=== PATIENT | male | born 1945 | race Caucasian/White ===

== ENCOUNTER 2023-08-29 04:25 | Inpatient (IN) ==
--- NOTE | 2023-08-29 04:45 | Emergency Department Note ---
History of Present Illness General Chief complaint: Skin Problem Stated complaint: PAINFUL BOILS UNDER ARMS Time Seen by Provider: 08/29/23 04:34 Source: patient, RN notes reviewed and old records reviewed (I have reviewed his ER visit for the similar complaint on 08-25-2023) Mode of arrival: ambulatory Limitations: no limitations History of Present Illness Maximum Pain Intensity: 5 This patient is a 77-year-old male comes in with a rash on his chest bilaterally with blisters has been going on for the last week and a half he was seen here on the and received IV's Solu-Medrol his labs look reassuring antibiotics and steroids were called and he does have an appointment to see dermatology later this week. He says that the rash is gotten worse. He says he supposed to be on the antibiotics and steroids but [facility] since the [facility] doctor [facility] not a [facility]. He denies fever no chest pain or shortness of breath he said the rashes got more red and swollen and more blisters. No cough. When he was seen in the ER it was felt that he had cellulitis with also bullous pemphigoid Home Medications Medication Instructions Recorded Confirmed Type pantoprazole 40 mg tablet,delayed 40 mg PO QAM 12/12/18 08/25/23 History release apixaban 5 mg tablet 5 mg PO BID 11/24/19 08/25/23 History atorvastatin 20 mg tablet 10 mg PO QPM 11/24/19 08/25/23 History montelukast 10 mg tablet 10 mg PO PM 05/09/23 08/25/23 History cefadroxil 500 mg capsule 500 mg PO BID PRN Prevent 05/29/23 08/25/23 Rx infection 7 days #14 caps acetaminophen 500 mg tablet 1,000 mg PO DIRECTED PRN Pain 08/25/23 08/25/23 History (Tylenol Extra Strength) carboxymethylcellulose sodium 0.5 1 drp ophthalmic (eye) DIRECTED 08/25/23 08/25/23 History % eye drops (Refresh Tears) PRN Dry Eyes ciclopirox 8 % topical solution 1 applic topical DIRECTED 08/25/23 08/25/23 History doxycycline hyclate 100 mg tablet 100 mg PO BID 10 days #20 tabs 08/25/23 Rx furosemide 20 mg tablet (Lasix) 20 mg PO DAILY 08/25/23 08/25/23 History metoprolol succinate 50 mg 50 mg PO DAILY 08/25/23 08/25/23 History tablet,extended release 24 hr potassium chloride 20 mEq 20 meq PO DAILY 08/25/23 08/25/23 History tablet,extended release prednisone 20 mg tablet 20 mg PO BID 5 days #10 tabs 08/25/23 Rx Allergies Allergy/AdvReac Type Severity Reaction Status Date / Time meloxicam AdvReac Intermediate Diarrhea Verified 08/25/23 19:16 Past Med/Surg History Problem List (Updated 08/29/23 @ 05:47 by Jim Valero MD) Rash (Acute) Cellulitis (Acute) Bullous pemphigoid (Acute) Encounter for pre-operative examination Degenerative arthritis of knee, bilateral Medical History CKD (chronic kidney disease) Stage III Obesity Atrial fibrillation Follows with Dr. 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 Beliefs That Will Affect Care: None Current Living Situation: Alone Feels Safe at Home: Yes Assistive Devices: Cane, Glasses and Hearing Aid - Bilateral Review of Systems A total of 10 systems reviewed and were otherwise negative Physical Exam Vital Signs Vital Signs - 24 hr 08/29/23 04:26 08/29/23 04:40 Temperature 36.1 C L Temperature Source Oral Pulse Rate 93 H Respiratory Rate 20 Blood Pressure 132/76 Blood Pressure Mean 94 Pulse Oximetry 96 95 Oxygen Delivery Method Room Air Room Air Sepsis Recent Fever Within 48 Hours No Sepsis New/Unexplained Change in Mental Status No Sepsis Action Taken by Nursing No Action Required General: Well developed well nourished older male who is [id number] and in no acute distress, breathing comfortably on room air. Normal speech HEENT: Normal cephalic atraumatic. Pupils are equal round and reactive to light. Sclera anicteric. Extraocular movements are intact. Oropharynx is pink with moist mucous membranes. No swelling of the mouth lips or tongue. Neck: Supple with a midline trachea. No meningeal signs or stiffness, no JVD or bruits. No Stridor. Chest: Clear to auscultation bilaterally. No wheezes or rhonchi. No increased work of breathing. Heart: Regular rate and rhythm without murmurs or gallops. Abdomen: Soft nontender, nondistended without rebound guarding or rigidity. Extremities: No cyanosis clubbing or edema. No calf tenderness or assymetry Spine/Back. Non tender to palpation. No CVA tenderness Skin: Good turgor. He has some redness bilaterally in his chest/breast more on the right he has multiple clear large blisters some of which have opened and are scabbed over. The area is warm. No crepitus Neurologic exam: Cranial nerves two through 12 are intact. Motor and sensation are intact and symmetrical throughout. Course Administered Medications Discontinued Medications Ceftriaxone Sodium (Rocephin) 2,000 mg in 50 mls @ 100 mls/hr IV NOW STA Stop: 08/29/23 05:08 Last Admin: 08/29/23 05:24 Dose: 100 mls/hr Documented By: KG Ketorolac Tromethamine (Ketorolac Tromethamine 15 Mg/Ml Vial) 10 mg IV NOW ONE Stop: 08/29/23 05:21 Last Admin: 08/29/23 05:24 Dose: 10 mg Documented By: KG Medical Decision Making Differential Diagnosis Cellulitis, sepsis, bullous pemphigoid, pemphigoid vulgaris, medication side effect Medical Records Attestation: I reviewed the patient's medical records. Home Medications Current Medication List: was personally reviewed by me Laboratory Data Attestation: I reviewed the patient's lab results. 08/29/23 04:45 08/29/23 04:45 Lab Results 08/29/23 Range/Units 04:45 WBC 10.93 H (4.8-10.8) K/ul RBC 5.63 (4.70-6.10) M/uL Hgb 17.3 (14.0-18.0) g/dl Hct 50.9 (42.0-52.0) % MCV 90.4 (80.0-100.0) fL MCH 30.7 (25.0-34.0) pg MCHC 34.0 (32.0-36.0) g/dL RDW Std Deviation 49.0 H (36.4-46.3) fL RDW Coeff of Naty 15.2 H (11.5-14.5) % Plt Count 316 (130-400) K/uL MPV 10.5 (9.4-12.4) fL Immature Gran % (Auto) 0.4 % Neut % (Auto) 62.7 % Lymph % (Auto) 19.3 % [place] % (Auto) 12.7 % Eos % (Auto) 4.3 % Baso % (Auto) 0.6 % Neut # (Auto) 6.85 H (1.40-6.50) K/uL Lymph # (Auto) 2.11 (1.20-3.40) K/uL [place] # (Auto) 1.39 H (0.11-0.59) K/uL Eos # (Auto) 0.47 (0.00-0.50) K/uL Baso # (Auto) 0.07 (0.00-0.20) K/uL Immature Gran # (Auto) 0.04 (0.01-0.20) K/uL Sodium 137 (136-145) mmol/L Potassium 3.9 (3.5-5.1) mmol/L Chloride 104 (98-107) mmol/L Carbon Dioxide 26 (21-32) mmol/L Anion Gap 7 (3-11) BUN 18 (6-23) mg/dl Creatinine 0.96 (0.6-1.4) mg/dl Est Cr Clr Drug Dosing Not Reportable Est GFR ( Amer) 88.0 ml/min Est GFR (Non-Af Amer) 75.9 ml/min BUN/Creatinine Ratio 18.8 (10-20) Glucose 102 H (70-99(Fasting)) mg/dl Lactate 1.2 (0.4-2.0) mmol/L Calcium 9.3 (8.6-10.3) mg/dl Magnesium 2.0 (1.7-2.4) mg/dl Total Bilirubin 1.6 H (0.2-1.0) mg/dl Direct Bilirubin 0.4 H (0-0.2) mg/dl AST 25 (13-39) U/L ALT 33 (7-52) U/L Alkaline Phosphatase 137 H (34-104) U/L Troponin I High Sens 9.0 (0-20) pg/ml Total Protein 7.2 (6.0-8.3) gm/dl Albumin 3.9 (3.4-5.0) gm/dl Procalcitonin 0.04 (0-0.5) ng/ml Imaging Data Attestation: I personally reviewed and interpreted this imaging study as follows: My Impression: Chest x-rayno acute infiltrate, failure, pneumothorax seen. MDM Narrative This patient comes in as described above. He was placed on a nuclear station operator room A10. He is here for treatment and evalation of a rash. It is red he does have blisters they have scabbed over in places as well. He is afebrile. IV access was established and blood work was obtained including blood cultures and lactic acid and given Rocephin 2 g IV he had this before. Unfortunately he was unable to get his antibiotics and steroids since he left [facility]. His white count was elevated at 10 although his lactic acid is not. Chest x-ray was clear. He was having a lot of of the pain he tells me so I gave him Toradol 10 mg IV. He is noticing of electrolyte abnormalities. Given his worsening of his rash and it looks infected with a cellulitis I do think he should be admitted/observed for IV antibiotics. I will discuss the case in consultation with Dr. Spear, the [facility] hospitalist. Impression & Plan Cellulitis, Rash Discharge Plan Visit Data Chief Complaint: Skin Problem Stated Complaint: PAINFUL BOILS UNDER ARMS ED Provider: Jim Valero Discharge Problem: Cellulitis, Rash Forms Stand Alone Forms: My [facility] Prescriptions Prescriptions: No Action cefadroxil 500 mg capsule 500 mg PO BID PRN (Reason: Prevent infection) 7 Days Qty: 14 0RF Rx Instructions: UNABLE TO VERIFY THIS MED. Take 1 cap twice a day to prevent infection pantoprazole 40 mg Tablet,Delayed Release (Dr/Ec) 40 mg PO QAM atorvastatin 20 mg Tablet 10 mg PO QPM apixaban 5 mg Tablet 5 mg PO BID montelukast 10 mg Tablet 10 mg PO PM metoprolol succinate 50 mg Tablet Extended Release 24 Hr 50 mg PO DAILY acetaminophen [Tylenol Extra Strength] 500 mg tablet 1,000 mg PO DIRECTED PRN (Reason: Pain) ciclopirox 8 % Solution 1 applic TOPICAL DIRECTED carboxymethylcellulose sodium [Refresh Tears] 0.5 % Drops 1 drp OPHTHALMIC (EYE) DIRECTED PRN (Reason: Dry Eyes) furosemide [Lasix] 20 mg Tablet 20 mg PO DAILY potassium chloride 20 mEq Tablet Extended Release 20 meq PO DAILY doxycycline hyclate 100 mg tablet 100 mg PO BID 10 Days Qty: 20 0RF prednisone 20 mg tablet 20 mg PO BID 5 Days Qty: 10 0RF Referrals Referrals: Maggi Vora DO [Primary Care Provider] - Discharge Problem: Cellulitis Qualifiers: Site of cellulitis: unspecified site Qualified Code(s): L03.90 - Cellulitis, unspecified
[2023-08-29 05:22] LABS: Basophils # (auto) 0.07 K/uL (0.00-0.20); Basophils % (auto) 0.6 %; Eosinophils # (auto) 0.47 K/uL (0.00-0.50); Eosinophils % (auto) 4.3 %; Hematocrit (blood only) 50.9 % (42.0-52.0); Hemoglobin 17.3 g/dl (14.0-18.0); Immature Granulocytes # (auto) 0.04 K/uL (0.01-0.20); Immature Granulocytes % (auto) 0.4 %; Lymphocytes # (auto) 2.11 K/uL (1.20-3.40); Lymphocytes % (auto) 19.3 %; Mean Corpuscular Hemoglobin 30.7 pg (25.0-34.0); Mean Corpuscular Volume 90.4 fL (80.0-100.0); Mean Platelet Volume 10.5 fL (9.4-12.4); Monocytes # (auto) 1.39 K/uL (0.11-0.59); Monocytes % (auto) 12.7 %; Neutrophils # (auto) 6.85 K/uL (1.40-6.50); Neutrophils % (auto) 62.7 %; Platelet Count 316 K/uL (130-400); RDW Coefficient of Variation 15.2 % (11.5-14.5); Red Blood Count 5.63 M/uL (4.70-6.10); White Blood Count 10.93 K/ul (4.8-10.8)
[2023-08-29] MEDS: cefTRIAXone SODIUM 2,000 MG/50 ML BAG IV STA (05:24)
[2023-08-29] MEDS: KETOROLAC TROMETHAMINE 15 MG/ML VIAL IV ONE (05:24)
[2023-08-29 05:26] LABS: Alanine Aminotransferase 33 U/L (7-52); Albumin Level 3.9 gm/dl (3.4-5.0); Alkaline Phosphatase 137 U/L (34-104); Anion Gap 7 (3-11); Aspartate Aminotransferase 25 U/L (13-39); BUN Creatinine Ratio 18.8 (10-20); Bilirubin Direct 0.4 mg/dl (0-0.2); Bilirubin,Total 1.6 mg/dl (0.2-1.0); Blood Urea Nitrogen 18 mg/dl (6-23); Calcium 9.3 mg/dl (8.6-10.3); Carbon Dioxide 26 mmol/L (21-32); Chloride 104 mmol/L (98-107); Est GFR (Non-African American) 75.9 ml/min; Glucose 102 mg/dl (70-99(Fasting)); Potassium 3.9 mmol/L (3.5-5.1); Sodium 137 mmol/L (136-145); Total Protein 7.2 gm/dl (6.0-8.3)
--- NOTE | 2023-08-29 06:13 | History & Physical Report ---
Date of Service August 29, 2023 Assessment & Plan (1) Cellulitis: Plan: Right chest wall cellulitis secondary to bullous dermatitis. 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 [place] if inpatient evaluation by specialist at [facility] not feasible.) DVT prophylaxis. Eliquis Full code Text document was generated using [employer] voice recognition software. It may contain grammatical or spelling errors. Kindly contact undersigned for clarification of any documentation item in question. History of Present Illness Chief Complaint: Worsening swelling chest, boils Primary Care Provider: Maggi Vora, History obtained from patient, family, and records. Medical history significant for chronic diastolic heart failure (EF 55 to 59%, TTE 2023), A-fib on Eliquis, valvular heart disease (severe TR, mild MR/AR), pulmonary hypertension, hypertension, hyperlipidemia, skin cancer status post surgery, past tobacco abuse. Last confinement February 2011 for GI bleed. 3 weeks ago, patient noted itchy and painful rash on his upper body, arms and left leg. Rash would form boils which would later rupture. Patient seen at PCPs office 2 weeks ago. Prescribed doxycycline for possible bacterial infection secondary to rash. Some improvement in rash and swelling. Outpatient provider showed photographs of rash to Dermatology service as per note. Outpatient dermatology scheduled this week. Patient consulted ER 4 days ago for evaluation of blistering rash. Patient discharged on prednisone and doxycycline course which patient was not able to procure because [facility]. Worsening rash and discomfort over the last few days. No fever, no chills, no chest pain, no SOB. Patient returned to ER for evaluation. IV ceftriaxone administered at the ER. Medical History as above Surgical History : Orbital fracture surgery, skin cancer surgery Family History : Colon cancer, DM Personal/Social history : Past tobacco abuse, occasional EtOH intake, retired [employer] teacher Allergies Allergy/AdvReac Type Severity Reaction Status Date / Time meloxicam AdvReac Intermediate Diarrhea Verified 08/25/23 19:16 Home Medications Medication Instructions Recorded Confirmed Type pantoprazole 40 mg tablet,delayed 40 mg PO QAM 12/12/18 08/29/23 History release apixaban 5 mg tablet 5 mg PO BID 11/24/19 08/29/23 History atorvastatin 20 mg tablet 10 mg PO QPM 11/24/19 08/29/23 History montelukast 10 mg tablet 10 mg PO PM 05/09/23 08/29/23 History acetaminophen 500 mg tablet 1,000 mg PO DIRECTED PRN Pain 08/25/23 08/29/23 History (Tylenol Extra Strength) carboxymethylcellulose sodium 0.5 1 drp ophthalmic (eye) DIRECTED 08/25/23 08/29/23 History % eye drops (Refresh Tears) PRN Dry Eyes furosemide 20 mg tablet (Lasix) 20 mg PO DAILY 08/25/23 08/29/23 History metoprolol succinate 50 mg 50 mg PO DAILY 08/25/23 08/29/23 History tablet,extended release 24 hr potassium chloride 20 mEq 10 meq PO DAILY 08/25/23 08/29/23 History tablet,extended release diclofenac sodium 1 % topical gel topical 08/29/23 History Past Med/Surg History Problem List (Updated 08/29/23 @ 05:47 by Jim Valero MD) Rash (Acute) Cellulitis (Acute) Bullous pemphigoid (Acute) Encounter for pre-operative examination Degenerative arthritis of knee, bilateral Medical History CKD (chronic kidney disease) Stage III Obesity Atrial fibrillation Follows with Dr. Vora Taking Eliquis GERD (gastroesophageal reflux disease) controlled Skin cancer BCC (face, back) Surgical History History of basal cell carcinoma (BCC) excision History of cardioversion x2 History of facial surgery R/t fracture History of esophagogastroduodenoscopy (EGD) Hx of colonoscopy Family History Mother Family history of diabetes mellitus Grandmother (Maternal) FHx: colon cancer Social History Smoking Status: Former smoker Second Hand Exposure: No; Do You Dip or Chew Tobacco: No; Hx Alcohol Use: No Hx Substance Use: No Preferred Language: Lao Communication Ability: Effective [employer] Zigzag Required: No Beliefs That Will Affect Care: None Current Living Situation: Alone Feels Safe at Home: Yes Assistive Devices: Cane, Glasses and Hearing Aid - Bilateral Review of Systems Review of Systems: As per HPI, all other systems reviewed and negative Physical Exam Physical Exam: GENERAL: Comfortable, pleasant, no respiratory distress SKIN: Normal color, warm, bullous lesions over axillary areas and trunk HEENT: Alopecia, bespectacled, pink palpebral conjunctivae, no ptosis, dry buccal mucosa NECK : Supple, no tenderness CHEST : CTA, tender induration right chest wall HEART : Irregular, no obvious murmurs ABDOMEN: Some distention, nontender EXTREMITIES : Minimal LE swelling, no LE tenderness, no other conspicuous deformities noted NEUROLOGIC : Coherent, no facial asymmetry, no other gross focality Results & Data Results & Data Vital Signs (Past 12 Hours) Vital Signs Temp Pulse Resp BP Pulse Ox O2 Del Method 08/29/23 04:40 95 Room Air 08/29/23 04:26 36.1 C L 93 H 20 132/76 96 Room Air Laboratory Results Laboratory Results WBC 10.93 K/ul (4.8-10.8) H 08/29/23 04:45 RBC 5.63 M/uL (4.70-6.10) 08/29/23 04:45 Hgb 17.3 g/dl (14.0-18.0) 08/29/23 04:45 Hct 50.9 % (42.0-52.0) 08/29/23 04:45 MCV 90.4 fL (80.0-100.0) 08/29/23 04:45 MCH 30.7 pg (25.0-34.0) 08/29/23 04:45 MCHC 34.0 g/dL (32.0-36.0) 08/29/23 04:45 RDW Std Deviation 49.0 fL (36.4-46.3) H 08/29/23 04:45 RDW Coeff of Naty 15.2 % (11.5-14.5) H 08/29/23 04:45 Plt Count 316 K/uL (130-400) 08/29/23 04:45 MPV 10.5 fL (9.4-12.4) 08/29/23 04:45 Immature Gran % (Auto) 0.4 % 08/29/23 04:45 Neut % (Auto) 62.7 % 08/29/23 04:45 Lymph % (Auto) 19.3 % 08/29/23 04:45 [place] % (Auto) 12.7 % 08/29/23 04:45 Eos % (Auto) 4.3 % 08/29/23 04:45 Baso % (Auto) 0.6 % 08/29/23 04:45 Neut # (Auto) 6.85 K/uL (1.40-6.50) H 08/29/23 04:45 Lymph # (Auto) 2.11 K/uL (1.20-3.40) 08/29/23 04:45 [place] # (Auto) 1.39 K/uL (0.11-0.59) H 08/29/23 04:45 Eos # (Auto) 0.47 K/uL (0.00-0.50) 08/29/23 04:45 Baso # (Auto) 0.07 K/uL (0.00-0.20) 08/29/23 04:45 Immature Gran # (Auto) 0.04 K/uL (0.01-0.20) 08/29/23 04:45 Sodium 137 mmol/L (136-145) 08/29/23 04:45 Potassium 3.9 mmol/L (3.5-5.1) 08/29/23 04:45 Chloride 104 mmol/L (98-107) 08/29/23 04:45 Carbon Dioxide 26 mmol/L (21-32) 08/29/23 04:45 Anion Gap 7 (3-11) 08/29/23 04:45 BUN 18 mg/dl (6-23) 08/29/23 04:45 Creatinine 0.96 mg/dl (0.6-1.4) 08/29/23 04:45 Est Cr Clr Drug Dosing Not Reportable 08/29/23 04:45 Est GFR ( Amer) 88.0 ml/min 08/29/23 04:45 Est GFR (Non-Af Amer) 75.9 ml/min 08/29/23 04:45 BUN/Creatinine Ratio 18.8 (10-20) 08/29/23 04:45 Glucose 102 mg/dl (70-99(Fasting)) H 08/29/23 04:45 Lactate 1.2 mmol/L (0.4-2.0) 08/29/23 04:45 Calcium 9.3 mg/dl (8.6-10.3) 08/29/23 04:45 Magnesium 2.0 mg/dl (1.7-2.4) 08/29/23 04:45 Total Bilirubin 1.6 mg/dl (0.2-1.0) H 08/29/23 04:45 Direct Bilirubin 0.4 mg/dl (0-0.2) H 08/29/23 04:45 AST 25 U/L (13-39) 08/29/23 04:45 ALT 33 U/L (7-52) 08/29/23 04:45 Alkaline Phosphatase 137 U/L (34-104) H 08/29/23 04:45 Troponin I High Sens 9.0 pg/ml (0-20) 08/29/23 04:45 Total Protein 7.2 gm/dl (6.0-8.3) 08/29/23 04:45 Albumin 3.9 gm/dl (3.4-5.0) 08/29/23 04:45 Procalcitonin 0.04 ng/ml (0-0.5) 08/29/23 04:45 Diagnostic Findings Chest x-ray as per my interpretation cardiomegaly (1) Cellulitis Site of cellulitis: unspecified site Qualified Code(s): L03.90 - Cellulitis, unspecified
[2023-08-29] MEDS: DOXYCYCLINE HYCLATE 100 MG in DEXTROSE 5% MINI-B 100 ML IV STA (06:14)
[2023-08-29] MEDS: SODIUM CHLORIDE 0.9% 1,000 ML IV ONE (06:14)
[2023-08-29] MEDS ORDERED: PROMETHAZINE HCL 6.25 MG in SODIUM CHLORIDE 0.9% 50 ML IV PRN (06:15)
[2023-08-29] MEDS ORDERED: traMADol HCL 50 MG TABLET PO PRN (06:15)
--- NOTE | 2023-08-29 06:38 | XRay Report ---
XR chest 1V portable CLINICAL HISTORY: Sepsis COMPARISON STUDY: Chest radiograph May 17, 2023. FINDINGS: Lung volumes are normal. Lungs are clear. There is no pneumothorax or pleural effusion. Car diomegaly is unchanged. Mediastinal contours are normal. There is no evidence for pulmonary edema. IMPRESSION: No acute cardiopulmonary findings. Stable cardiomegaly. ACT 112: Negative or not required by law. Electronically signed by: Neville Maza M.D. 08/29/2023 6:37 AM
[2023-08-29] MEDS ORDERED: ARTIFICIAL TEARS OP PRN (07:39)
[2023-08-29] MEDS: LORATADINE 10 MG TAB PO ONE (08:37)
[2023-08-29] MEDS: APIXABAN 5 MG TABLET PO SCH (08:38)
[2023-08-29] MEDS: METOPROLOL SUCC 50MG EXT REL TAB PO SCH (08:42)
[2023-08-29] MEDS: PANTOprazole 40 MG TAB PO SCH (08:42)
[2023-08-29] MEDS: LORATADINE 10 MG TAB ONE (08:46)
[2023-08-29] MEDS ORDERED: Patient's HEIGHT &/or WEIGHT Needed SCH (11:00)
[2023-08-29] MEDS: predniSONE 20 MG TAB PO SCH (12:35)
--- NOTE | 2023-08-29 16:10 | Hospitalist Progress Note ---
Date of Service August 29, 2023 Assessment & Plan (1) Cellulitis: Plan: Chest Wall Cellulitis/Bullous Pemphigoid --CXR:No acute cardiopulmonary findings. Stable cardiomegaly. --Blood culture pending -- Continue Rocephin, doxycycline for now --Continue prednisone 40 mg daily --Discussed with dermatology Dr. Boyle: Recommends skin biopsyas able, follow-up outpatient Received IV fluids Needs follow-up with dermatology on discharge Chronic diastolic heart failure EF 55 to 59%, TTE 2023 Resume Lasix as able Monitor volume status Chronic atrial fibrillation On Eliquis for anticoagulation next Continue metoprolol Valvular heart disease (severe TR, mild MR/AR) Hypertension Hyperlipidemia Past tobacco abuse Continue home medications DVT Px: Eliquis Code Status Full code Admission and Anticipated Discharge Date Admission Date: August 29, 2023 Subjective Patient is seen and examined at bedside States having itchy erythematous burning sensation of the rash on the chest Denies any chest pain, dyspnea, nausea, vomiting, abdominal pain, diarrhea Discussed with dermatology today Itching improved while compared to yesterday per patient No other complaints Review of Systems Review of Systems: All systems reviewed & are unremarkable except as noted in Subjective Physical Exam Physical Exam: Physical Exam: Vitals signs as noted above General Appearance:Moderately built and nourished, no apparent distress Head: normocephalic, Atraumatic Eyes: normal inspection, EOMI Neck: supple, Trachea midline Respiratory/Chest: Normal breath sounds, CTA, No accessory muscle use Cardiovascular: Irregularly irregular, No murmur Abdomen/GI:Soft, Non tender, Bowel sounds present Extremities/Musculoskeletal:normal inspection, + B/L LE edema Neurologic/Psych:AAOX3, grossly no focal neurological deficits Skin:+ Wellness lesions, erythematous rash predominantly on chest Results & Data Results & Data Vital Signs (Past 12 Hours) Vital Signs Temp Pulse Pulse Resp BP BP Pulse Ox 08/29/23 14:21 36.5 C 74 16 107/62 96 08/29/23 10:30 36.5 C 79 17 137/80 95 08/29/23 08:40 62 18 142/78 H 95 08/29/23 08:00 78 18 149/122 H 93 08/29/23 07:32 73 08/29/23 04:40 95 08/29/23 04:26 36.1 C L 93 H 20 132/76 96 O2 Del Method 08/29/23 14:21 Room Air 08/29/23 10:30 Room Air 08/29/23 08:40 Room Air 08/29/23 08:00 Room Air 08/29/23 07:32 08/29/23 04:40 Room Air 08/29/23 04:26 Room Air Laboratory Results Short CBC 08/29/23 Range/Units 04:45 WBC 10.93 H (4.8-10.8) K/ul Hgb 17.3 (14.0-18.0) g/dl Hct 50.9 (42.0-52.0) % Plt Count 316 (130-400) K/uL BMP 08/29/23 04:45 Sodium 137 Potassium 3.9 Chloride 104 Carbon Dioxide 26 BUN 18 Creatinine 0.96 Glucose 102 H Calcium 9.3 Liver Function 08/29/23 Range/Units 04:45 Total Bilirubin 1.6 H (0.2-1.0) mg/dl Direct Bilirubin 0.4 H (0-0.2) mg/dl AST 25 (13-39) U/L ALT 33 (7-52) U/L Alkaline Phosphatase 137 H (34-104) U/L Albumin 3.9 (3.4-5.0) gm/dl (1) Cellulitis Site of cellulitis: unspecified site Qualified Code(s): L03.90 - Cellulitis, unspecified
[2023-08-29] MEDS: MONTELUKAST SODIUM 10 MG TABLET PO SCH (20:49)
[2023-08-29] MEDS: DOXYCYCLINE HYCLATE 100 MG CAP PO SCH (20:49)
[2023-08-29] MEDS: ATORVASTATIN 10 MG TAB PO SCH (20:49)
[2023-08-30] MEDS: cefTRIAXone SODIUM 2,000 MG/50 ML BAG IV SCH (04:27)
[2023-08-30 07:51] LABS: Hematocrit (blood only) 47.3 % (42.0-52.0); Hemoglobin 15.7 g/dl (14.0-18.0); Mean Corpuscular Hemoglobin 30.6 pg (25.0-34.0); Mean Corpuscular Hgb Conc 33.2 g/dL (32.0-36.0); Mean Corpuscular Volume 92.2 fL (80.0-100.0); Mean Platelet Volume 10.4 fL (9.4-12.4); Platelet Count 286 K/uL (130-400); RDW Coefficient of Variation 14.9 % (11.5-14.5); RDW Standard Deviation 50.4 fL (36.4-46.3); Red Blood Count 5.13 M/uL (4.70-6.10); White Blood Count 14.98 K/ul (4.8-10.8)
[2023-08-30 08:09] LABS: Calcium 8.9 mg/dl (8.6-10.3); Potassium 4.3 mmol/L (3.5-5.1)
[2023-08-30 08:14] LABS: Creatinine Clr Calc Pharmacy 72.5 ml/min; Est GFR (Non-African American) 68.1 ml/min
[2023-08-30] MEDS: LORATADINE 10 MG TAB PO SCH (08:37)
[2023-08-30] MEDS ORDERED: ONDANSETRON INJ 2 MG/ML 2 ML VIAL IV PRN (15:22)
--- NOTE | 2023-08-30 17:23 | Hospitalist Progress Note ---
Date of Service August 30, 2023 Assessment & Plan (1) Cellulitis: Plan: Chest Wall Cellulitis/Bullous Pemphigoid --CXR:No acute cardiopulmonary findings. Stable cardiomegaly. --Blood culture negative to date -- Continue Rocephin, doxycycline --Continue prednisone 40 mg daily --Discussed with dermatology Dr. Boyle: Recommends skin biopsy as able, follow-up outpatient Received IV fluids Needs follow-up with dermatology on discharge Benadryl as needed Increased leukocytosis likely due to steroids Clinically no significant improvement today Chronic diastolic heart failure EF 55 to 59%, TTE 2023 Resume Lasix as able Monitor volume status Chronic atrial fibrillation On Eliquis for anticoagulation next Continue metoprolol Valvular heart disease (severe TR, mild MR/AR) Hypertension Hyperlipidemia Past tobacco abuse Continue home medications DVT Px: Eliquis Code Status Full code Admission and Anticipated Discharge Date Admission Date: August 30, 2023 Subjective Patient is seen and examined at bedside No significant change when compared to yesterday Reports itchy rash Denies any chest pain, dyspnea, nausea, vomiting, abdominal pain, diarrhea Review of Systems Review of Systems: All systems reviewed & are unremarkable except as noted in Subjective Physical Exam Physical Exam: Physical Exam: Vitals signs as noted above General Appearance:Moderately built and nourished, no apparent distress Head: normocephalic, Atraumatic Eyes: normal inspection, EOMI Neck: supple, Trachea midline Respiratory/Chest: Normal breath sounds, CTA, No accessory muscle use Cardiovascular: Irregularly irregular, No murmur Abdomen/GI:Soft, Non tender, Bowel sounds present Extremities/Musculoskeletal:normal inspection, + B/L LE edema Neurologic/Psych:AAOX3, grossly no focal neurological deficits Skin:+ Wellness lesions, erythematous rash predominantly on chest Results & Data Results & Data Vital Signs (Past 12 Hours) Vital Signs Temp Pulse Resp BP BP Pulse Ox O2 Del Method 08/30/23 16:03 36.7 C 82 16 105/64 97 Room Air 08/30/23 07:49 36.5 C 64 16 114/66 96 Room Air Laboratory Results Short CBC 08/30/23 Range/Units 07:31 WBC 14.98 H (4.8-10.8) K/ul Hgb 15.7 (14.0-18.0) g/dl Hct 47.3 (42.0-52.0) % Plt Count 286 (130-400) K/uL [facility] 08/30/23 07:31 Sodium 137 Potassium 4.3 Chloride 110 H Carbon Dioxide 22 BUN 20 Creatinine 1.05 Glucose 106 H Calcium 8.9 (1) Cellulitis Site of cellulitis: unspecified site Qualified Code(s): L03.90 - Cellulitis, unspecified
--- OUTSIDE RECORDS SUMMARY | 2023-08-30 20:14 | External Medical Summary | Summary of Care ---
Author Name Unknown Organization [facility] Address [address] [place] [address] Phone [phone] Care Team Providers Care Apiarist Name Role Phone Maggi Vora DO Primary Care Provider Reason for Visit * Reason Onset Date Comments Advice 08/28/2023 Encounter Details Date Type Department Care Team (Late st Contact Info) Description 08/28/2023 Telephone [facility] [address] [place] [address] Maggi Vora DO [address] [place] [address] Advice Allergies No known active allergiesdocumented as of this encounter (statuses as of 08/29/2023) Medications Medication Sig Dispensed Refills Start Date End Date Status Apixaban 5 MG Oral Tablet (Eliquis)Indications :Atrial fibrillation, unspecified type (HCC) Take by mouth 1 Tablet in the morning AND 1 Tablet before bedtime. 180 Tablet 1 01/03/2022 Active Atorvastatin Calcium 20 MG Oral Tablet (Lipitor)Indications :Hyperlipidemia with target LDL less than 70 Take 0.5 Tablets by mouth in the morning. 46 Tablet 3 04/04/2022 Active Metoprolol Succinate ER 50 MG Oral Tablet Extended Release 24 Hour (Toprol XL) Take 1 Tablet by mouth in the morning. 100 Tablet 4 04/04/2022 Active Carboxymethylcellulo se Sodium 0.5 % Ophthalmic Solution INSTILL 1 DROP IN BOTH EYES FOUR TIMES A DAY FOR DRY EYES 09/26/2021 Active Montelukast Sodium 10 MG Oral Tablet (Singulair) Take 1 Tablet by mouth in the morning. 90 Tablet 3 06/13/2022 Active Fluticasone Propionate 50 MCG/ACT Nasal Suspension (Flonase) Administer 2 Sprays into each nostril in the morning. 48 g 2 07/19/2022 Active Pantoprazole Sodium 40 MG Oral Tablet Delayed Release (Protonix)Indication s:Gastroesophageal reflux disease without esophagitis TAKE 1 TAB BY MOUTH 30MINS BEFORE THE FIRST MEAL OF THE DAY *DO NOT CRUSH,SPLIT OR CHEW* 90 Tablet 1 01/24/2023 Active One-A-Day Mens 50+ Oral Tablet Take by mouth. Active Diclofenac Sodium 1 % External Gel (Voltaren)Indication s:Primary osteoarthritis of one knee, right Apply topically to affected area 3 times a day. Apply to right knee for pain 50 g 1 06/20/2023 Active Furosemide 20 MG Oral Tablet (Lasix)Indications:A cute right-sided heart failure (HCC) Take 1 Tablet by mouth in the morning. 90 Tablet 3 07/13/2023 Active Potassium Chloride Radha ER 10 MEQ Oral Tablet Extended ReleaseIndications:A cute right-sided heart failure (HCC) Take 1 Tablet by mouth in the morning. 90 Tablet 3 07/13/2023 Active Additional Information Patient not taking.Reported on 08/15/2023 Furosemide 20 MG Oral Tablet (Lasix)Indications:E patricia of both lower legs Take 1 Tablet by mouth in the morning. 90 Tablet 3 07/15/2023 Active Additional Information Patient not taking.Reported on 08/15/2023 Potassium Chloride Radha ER 10 MEQ Oral Tablet Extended ReleaseIndications:E patricia of both lower legs Take 1 Tablet by mouth in the morning. 90 Tablet 3 07/15/2023 Active Doxycycline Hyclate 100 MG Oral Capsule Take 1 Capsule by mouth in the morning and 1 Capsule before bedtime. Do all this for 10 days. Until gone.. 20 Capsule 08/29/2023 4 Active predniSONE 20 MG Oral Tablet (Deltasone) Take 1 Tablet by mouth in the morning and 1 Tablet before bedtime. Do all this for 5 days. 10 Tablet 08/29/2023 4 Active documented as of this encounter (statuses as of 08/29/2023) Active Problems Problem Noted Date Diagnosed Date Severe tricuspid regurgitation 06/20/2023 Permanent atrial fibrillation 05/20/2023 Allergic rhinitis 06/25/2022 Persistent atrial fibrillation 06/06/2020 Stage 3a chronic kidney disease 02/29/2020 Overview: Per CKD protocol - Per CKD protocol Hx of nonmelanoma skin cancer 10/28/2018 Overview: basal cell carcinoma (nasal bridge 11/03, R nasal crease 11/03, R upper back 11/03) Gastroesophageal reflux disease without esophagi tis 10/23/2018 documented as of this encounter (statuses as of 08/29/2023) Resolved Problems Problem Noted Date Diagnosed Date Resolved Date Chronic kidney disease, stage 3a 01/25/2020 03/03/2020 Overview: Per CKD protocol Obesity (BMI 30-39.9) 05/02/20112017 Overview: bmi= 38.02 05/02/11 Rectal hemorrhage 05/02/2011 09/05/2017 ARF (acute renal failure) 05/02/2011 Vaccine refused by patient 05/02/2011 0 09/05/2017 Screening for cardiovascular condition 05/02/2011 09/05/2017 Routine medical exam 05/02/2011 018 Colon polyp 09/05/2017 documented as of this encounter (statuses as of 08/29/2023) Immunizations Name Administration Dates Next Due COVID-19 mRNA, LNP-s, No Pre serve, 2-Dose Series (Moderna) 08/18/2021,06/21/2020,05/24/2020 COVID-19, mRNA, LNP-s, PF, B ooster, 100mcg/0.5mg (Moderna) 01/23/2021 Covid-19, Mrna, Lnp-s, Pf, B ivalent, 30 Mcg, IM, 12 yrs and above (Pfizer) 03/15/2022 Pneumococcal Conjugate Vacc, 13 Valent (Prevnar) 10/23/2018 Pneumococcal Polysaccharide PPV23 (Pneumovax) 10/28/2019 Seasonal Influenza, PF, 6 M & above, IM , (FluLaval or Fluzone) 12/30/2020,12/19/2019 Seasonal Influenza, Quadriva lent Hd (Fluzone Hd) 12/13/2021 TD - Tetanus/Diptheria (ADULT) 05/17/2021 Zoster Vaccine Recombinant (Shingrix) 03/02/2020 ,12/30/2019 documented as of this encounter Social History Tobacco Use Types Packs/Day Years Used Date Smoking Tobacco: Former Cigarettes Q uit: 03/18/1979 Passive Smoke Exposure: Past Smokeless Tobacco: Never Alcohol Use Standard Drinks/Week Comments No 0 (1 standard drink = 0.6 oz pur e alcohol) none PHQ-2 Answer Date Recorded PHQ-2 Score 0 01/14/2020 Hunger Vital Sign Answer Date Recorded Worried About Running Out of Food in the Last Ye ar Never true 10/12/2019 Ran Out of Food in the Last Year Never true 10/12/2019 Sex and Gender Information Value Date Recorded Sex Assigned at Male 08/12/2018 9:35 AM EDT Gender Identity Male 08/12/2018 9:35 AM EDT Sexual Orientation Straight 08/12/2018 9: 35 AM EDT Job Start Date Occupation Industry Not on file Not on file Not on file documented as of this encounter Miscellaneous Notes * Telephone Encounter - Maggi Vora DO - 08/29/2023 1:31 PM EDT Med sent * Telephone Encounter - Liz Vasquez OSA - 08/28/2023 12:56 PM EDT PT was seen at [facility] ER on Thursday 08/24, and was prescribed Doxycycline 100 mg twice a day for 10 daysand prednisone 20 mg twice a day for 5 days [facility] and [facility] declined the medication because it did not come from PCP. Pt asking if PCP can call these in for him to [facility] in [place] for him. Please advise documented in this encounter Plan of Treatment Upcoming Encounters Date Type Department Care Team (Late st Contact Info) Description 08/30/2023 9:00 AM EDT Office Visit Dermatology [address], [place] [address] [place] [id number] Eugenie Teixeira PA-C [address] [facility] [place] [id number] 09/12/2023 9:00 AM EDT Cardiac Studies Cardiac Studies [address] [place] [id number] 10/08/2023 9:00 AM EDT Office Visit Cardiology, [facility] [address] [place] [id number] German Johnson PA-C [address] [place] [id number] 12/26/2023 8:30 AM EDT Office Visit Family [facility] [address] [place] [address] Maggi Vora, [address] [place] [address] Health Maintenance Due Date Last Done Comments CKD PHOS USE SMARTSET 04809 09/17/1963 Depression Screening 01/13/2021 01/14/2020 DTaP,Tdap,and Td Vaccines (1 - Tdap) 05/18/2021 05/17/2021 COVID-19 Vaccine (2022- season) 2023 01/11/2023, 03/15/2022, 08/18/2021, Additional history exists Influenza Vaccine (FLU shot) (Season Ended) 2023 12/13/2021, 12/30/2020, 12/19/2019 GFR 02/15/2024 08/15/2023, 06/17, 05/14/2023, Additional history exists Albumin/Creatinine Ratio 05/14/2024 024, 11/13/2022, 05/16/2022, Additional history exists CKD HGB USE SMARTSET 84175 08/14/202408/14, 08/15/2023, 07/12/2023, Additional history exists Pneumococcal Vaccine: 65+ Years Completed 11/13/2019, 10/28/2019, 10/23/2018 Zoster Vaccines Completed 03/02/2020, 12/30/2019 GARDASIL-HPV IMMUNIZATION SERIES Aged Out No longer eligible based on patient's age to complete this topic Hepatitis B Aged Out No longer eligi ble based on patient's age to complete this topic MENINGOCOCCAL (MENACTRA/MENVEO) Aged Out No longer eligible based on patient's age to complete this topic documented as of this encounter Medical Devices Not on filedocumented as of this encounter Care Teams Apiarist Relationship Specialty Start Date End Date Maggi Vora DO [address] [place] [address] PCP - General Family Medicine 08/12/18 documented as of this encounter
[2023-08-30] MEDS: diphenhydrAMINE HCL 25 MG/10 ML UDC PO PRN (20:46)
[2023-08-31 08:08] LABS: Hematocrit (blood only) 44.9 % (42.0-52.0); Hemoglobin 15.2 g/dl (14.0-18.0); Mean Corpuscular Hemoglobin 30.7 pg (25.0-34.0); Mean Corpuscular Hgb Conc 33.9 g/dL (32.0-36.0); Mean Corpuscular Volume 90.7 fL (80.0-100.0); Mean Platelet Volume 10.6 fL (9.4-12.4); Platelet Count 292 K/uL (130-400); RDW Coefficient of Variation 15.3 % (11.5-14.5); RDW Standard Deviation 50.3 fL (36.4-46.3); Red Blood Count 4.95 M/uL (4.70-6.10); White Blood Count 13.72 K/ul (4.8-10.8)
[2023-08-31 08:35] LABS: BUN Creatinine Ratio 20.4 (10-20); Creatinine Clr Calc Pharmacy 70.5 ml/min; Est GFR (African American) 76.3 ml/min; Est GFR (Non-African American) 65.9 ml/min; Magnesium 2.1 mg/dl (1.7-2.4); Potassium 4.1 mmol/L (3.5-5.1)
--- NOTE | 2023-08-31 15:32 | Hospitalist Progress Note ---
Date of Service August 31, 2023 Assessment & Plan (1) Cellulitis: Plan: Chest Wall Cellulitis/Bullous Pemphigoid --CXR:No acute cardiopulmonary findings. Stable cardiomegaly. --Blood culture negative to date -- Continue Rocephin, doxycycline --Continue prednisone 40 mg daily --Discussed with dermatology Dr. 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) Hypertension Hyperlipidemia Past tobacco abuse Continue home medications BP slightly elevated this morning likely due to steroids Monitor BP DVT Px: Eliquis Code Status Full code Admission and Anticipated Discharge Date Admission Date: August 30, 2023 Subjective Patient is seen and examined at bedside Erythematous rash slowly improving No new complaints today Denies any chest pain, dyspnea, nausea, vomiting, abdominal pain, diarrhea Blood cultures remain negative Review of Systems Review of Systems: All systems reviewed & are unremarkable except as noted in Subjective Physical Exam Physical Exam: Physical Exam: Vitals signs as noted above General Appearance:Moderately built and nourished, no apparent distress Head: normocephalic, Atraumatic Eyes: normal inspection, EOMI Neck: supple, Trachea midline Respiratory/Chest: Normal breath sounds, CTA, No accessory muscle use Cardiovascular: Irregularly irregular, No murmur Abdomen/GI:Soft, Non tender, Bowel sounds present Extremities/Musculoskeletal:normal inspection, + B/L LE edema Neurologic/Psych:AAOX3, grossly no focal neurological deficits Skin:+ Wellness lesions, erythematous rash predominantly on chest Results & Data Results & Data Vital Signs (Past 12 Hours) Vital Signs Temp Pulse Resp BP Pulse Ox O2 Del Method 08/31/23 08:01 36.6 C 66 16 152/93 H 96 Room Air Laboratory Results Short CBC 08/31/23 Range/Units 07:16 WBC 13.72 H (4.8-10.8) K/ul Hgb 15.2 (14.0-18.0) g/dl Hct 44.9 (42.0-52.0) % Plt Count 292 (130-400) K/uL [facility] 08/31/23 07:16 Sodium 138 Potassium 4.1 Chloride 107 Carbon Dioxide 24 BUN 22 Creatinine 1.08 Glucose 86 Calcium 9.0 (1) Cellulitis Site of cellulitis: unspecified site Qualified Code(s): L03.90 - Cellulitis, unspecified
[2023-09-01] MEDS: diphenhydrAMINE HCL 25 MG/10 ML UDC PO PRN (12:28)
--- NOTE | 2023-09-01 15:08 | Hospitalist Progress Note ---
Date of Service September 01, 2023 Assessment & Plan (1) Cellulitis: Plan: Chest Wall Cellulitis/Bullous Pemphigoid --CXR:No acute cardiopulmonary findings. Stable cardiomegaly. --Blood culture negative to date -- Continue Rocephin, doxycycline --Continue prednisone 40 mg daily --Discussed with dermatology Dr. 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) Hypertension Hyperlipidemia Past tobacco abuse Continue home medications BP slightly elevated this morning likely due to steroids Monitor BP DVT Px: Eliquis Code Status Full code Admission and Anticipated Discharge Date Admission Date: August 30, 2023 Subjective Patient is seen and examined at bedside Rash slowly improving Continues to complain of itchiness No other complaints today Denies any chest pain, dyspnea, nausea, vomiting, abdominal pain, diarrhea Review of Systems Review of Systems: All systems reviewed & are unremarkable except as noted in Subjective Physical Exam Physical Exam: Physical Exam: Vitals signs as noted above General Appearance:Moderately built and nourished, no apparent distress Head: normocephalic, Atraumatic Eyes: normal inspection, EOMI Neck: supple, Trachea midline Respiratory/Chest: Normal breath sounds, CTA, No accessory muscle use Cardiovascular: Irregularly irregular, No murmur Abdomen/GI:Soft, Non tender, Bowel sounds present Extremities/Musculoskeletal:normal inspection, + B/L LE edema Neurologic/Psych:AAOX3, grossly no focal neurological deficits Skin:+ Wellness lesions, erythematous rash predominantly on chest Results & Data Results & Data Vital Signs (Past 12 Hours) Vital Signs Temp Pulse Resp BP Pulse Ox O2 Del Method 09/01/23 07:25 36.5 C 76 16 130/79 97 Room Air (1) Cellulitis Site of cellulitis: unspecified site Qualified Code(s): L03.90 - Cellulitis, unspecified
[2023-09-02 07:30] LABS: Hematocrit (blood only) 45.2 % (42.0-52.0); Mean Corpuscular Hemoglobin 30.4 pg (25.0-34.0); Mean Corpuscular Hgb Conc 33.2 g/dL (32.0-36.0); Mean Corpuscular Volume 91.5 fL (80.0-100.0); Mean Platelet Volume 10.6 fL (9.4-12.4); Platelet Count 292 K/uL (130-400); RDW Coefficient of Variation 15.3 % (11.5-14.5); RDW Standard Deviation 50.5 fL (36.4-46.3); Red Blood Count 4.94 M/uL (4.70-6.10); White Blood Count 12.62 K/ul (4.8-10.8)
[2023-09-02 07:39] LABS: BUN Creatinine Ratio 20.4 (10-20); Calcium 9.2 mg/dl (8.6-10.3); Creatinine Clr Calc Pharmacy 70.5 ml/min; Est GFR (African American) 76.3 ml/min; Est GFR (Non-African American) 65.9 ml/min; Potassium 4.2 mmol/L (3.5-5.1)
[2023-09-02] MEDS: predniSONE 20 MG TAB PO ONE (12:14)
--- NOTE | 2023-09-02 16:42 | Hospitalist Progress Note ---
Date of Service September 02, 2023 Assessment & Plan (1) Cellulitis: Plan: Chest Wall Cellulitis/Bullous Pemphigoid --CXR:No acute cardiopulmonary findings. Stable cardiomegaly. --Blood culture negative to date -- Continue Rocephin, doxycycline --Continue prednisone 40 mg daily --Discussed with dermatology Dr. Romero: Recommends skin biopsy as able, follow- up outpatient Received IV fluids Needs follow-up with dermatology on discharge Benadryl as needed Increased leukocytosis likely due to steroids Discussed with Dr. Boyle on 09/02/2023: Advised to increase prednisone to 60 mg daily Outpatient follow-up with Dr. 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) Hypertension Hyperlipidemia Past tobacco abuse Continue home medications Monitor BP DVT Px: Eliquis Code Status Full code Admission and Anticipated Discharge Date Admission Date: August 30, 2023 Subjective Patient is seen and examined at bedside States having new blisters Erythema slowly improving Still has itchiness Discussed with dermatology today Denies any chest pain, dyspnea, nausea, vomiting, abdominal pain, diarrhea Review of Systems Review of Systems: All systems reviewed & are unremarkable except as noted in Subjective Physical Exam Physical Exam: Physical Exam: Vitals signs as noted above General Appearance:Moderately built and nourished, no apparent distress Head: normocephalic, Atraumatic Eyes: normal inspection, EOMI Neck: supple, Trachea midline Respiratory/Chest: Normal breath sounds, CTA, No accessory muscle use Cardiovascular: Irregularly irregular, No murmur Abdomen/GI:Soft, Non tender, Bowel sounds present Extremities/Musculoskeletal:normal inspection, + B/L LE edema Neurologic/Psych:AAOX3, grossly no focal neurological deficits Skin:+ Wellness lesions, erythematous rash predominantly on chest Results & Data Results & Data Vital Signs (Past 12 Hours) Vital Signs Temp Pulse Resp BP BP Pulse Ox O2 Del Method 09/02/23 14:06 37.1 C 72 16 108/72 95 Room Air 09/02/23 09:03 92 H 100/57 L 09/02/23 07:04 36.5 C 69 16 142/69 H 98 Room Air Laboratory Results Short CBC 09/02/23 Range/Units 06:14 WBC 12.62 H (4.8-10.8) K/ul Hgb 15.0 (14.0-18.0) g/dl Hct 45.2 (42.0-52.0) % Plt Count 292 (130-400) K/uL [facility] 09/02/23 06:14 Sodium 138 Potassium 4.2 Chloride 107 Carbon Dioxide 25 BUN 22 Creatinine 1.08 Glucose 89 Calcium 9.2 (1) Cellulitis Site of cellulitis: unspecified site Qualified Code(s): L03.90 - Cellulitis, unspecified
[2023-09-03] MEDS: predniSONE 20 MG TAB PO SCH (08:11)
--- NOTE | 2023-09-03 11:58 | Hospitalist Progress Note ---
Date of Service September 03, 2023 Assessment & Plan (1) Cellulitis: Plan: Chest Wall Cellulitis/Bullous Pemphigoid --CXR:No acute cardiopulmonary findings. Stable cardiomegaly. --Blood culture negative to date -- Continue Rocephin, doxycycline --Continue prednisone 40 mg daily --Discussed with dermatology Dr. Romero: Recommends skin biopsy as able, follow- up outpatient Received IV fluids Needs follow-up with dermatology on discharge Benadryl as needed Increased leukocytosis likely due to steroids Discussed with Dr. Boyle on 09/02/2023: Advised to increase prednisone to 60 mg daily Outpatient follow-up with Dr. 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) Hypertension Hyperlipidemia Past tobacco abuse Continue home medications Monitor BP DVT Px: Eliquis Code Status Full code Admission and Anticipated Discharge Date Admission Date: August 30, 2023 Subjective Patient is seen and examined at bedside States feeling well today Erythematous rash much improved No new complaints Denies any chest pain, dyspnea, nausea, vomiting, abdominal pain, diarrhea Eager to get discharged home today Review of Systems Review of Systems: All systems reviewed & are unremarkable except as noted in Subjective Physical Exam Physical Exam: Physical Exam: Vitals signs as noted above General Appearance:Moderately built and nourished, no apparent distress Head: normocephalic, Atraumatic Eyes: normal inspection, EOMI Neck: supple, Trachea midline Respiratory/Chest: Normal breath sounds, CTA, No accessory muscle use Cardiovascular: Irregularly irregular, No murmur Abdomen/GI:Soft, Non tender, Bowel sounds present Extremities/Musculoskeletal:normal inspection, + B/L LE edema Neurologic/Psych:AAOX3, grossly no focal neurological deficits Skin:+ Wellness lesions, erythematous rash predominantly on chest Results & Data Results & Data Vital Signs (Past 12 Hours) Vital Signs Temp Pulse Resp BP Pulse Ox O2 Del Method 09/03/23 07:14 36.3 C L 72 16 118/69 97 Room Air (1) Cellulitis Site of cellulitis: unspecified site Qualified Code(s): L03.90 - Cellulitis, unspecified
--- NOTE | 2023-09-03 12:06 | Discharge Summary ---
Date of Service September 03, 2023 Admission HPI Per Admitting Provider History obtained from patient, family, and records. Medical history significant for chronic diastolic heart failure (EF 55 to 59%, TTE 2023), A-fib on Eliquis, valvular heart disease (severe TR, mild MR/AR), pulmonary hypertension, hypertension, hyperlipidemia, skin cancer status post surgery, past tobacco abuse. Last confinement February 2011 for GI bleed. 3 weeks ago, patient noted itchy and painful rash on his upper body, arms and left leg. Rash would form boils which would later rupture. Patient seen at PCPs office 2 weeks ago. Prescribed doxycycline for possible bacterial infection secondary to rash. Some improvement in rash and swelling. Outpatient provider showed photographs of rash to Dermatology service as per note. Outpatient dermatology scheduled this week. Patient consulted ER 4 days ago for evaluation of blistering rash. Patient discharged on prednisone and doxycycline course which patient was not able to procure because [facility]. Worsening rash and discomfort over the last few days. No fever, no chills, no chest pain, no SOB. Patient returned to ER for evaluation. IV ceftriaxone administered at the ER. Medical History as above Surgical History : Orbital fracture surgery, skin cancer surgery Family History : Colon cancer, DM Personal/Social history : Past tobacco abuse, occasional EtOH intake, retired director of social services Admission Exam Per Admitting Provider GENERAL: Comfortable, pleasant, no respiratory distress SKIN: Normal color, warm, bullous lesions over axillary areas and trunk HEENT: Alopecia, bespectacled, pink palpebral conjunctivae, no ptosis, dry buccal mucosa NECK : Supple, no tenderness CHEST : CTA, tender induration right chest wall HEART : Irregular, no obvious murmurs ABDOMEN: Some distention, nontender EXTREMITIES : Minimal LE swelling, no LE tenderness, no other conspicuous deformities noted NEUROLOGIC : Coherent, no facial asymmetry, no other gross focality Principal Diagnosis Chest Wall Cellulitis/Bullous Pemphigoid Discharge Data Allergies Allergy/AdvReac Type Severity Reaction Status Date / Time meloxicam AdvReac Intermediate Diarrhea Verified 08/25/23 19:16 Consultations 08/29/23 05:34 ED Decision to Admit Stat Procedures Performed Laboratory Results WBC 12.62 K/ul (4.8-10.8) H 09/02/23 06:14 RBC 4.94 M/uL (4.70-6.10) 09/02/23 06:14 Hgb 15.0 g/dl (14.0-18.0) 09/02/23 06:14 Hct 45.2 % (42.0-52.0) 09/02/23 06:14 MCV 91.5 fL (80.0-100.0) 09/02/23 06:14 MCH 30.4 pg (25.0-34.0) 09/02/23 06:14 MCHC 33.2 g/dL (32.0-36.0) 09/02/23 06:14 RDW Std Deviation 50.5 fL (36.4-46.3) H 09/02/23 06:14 RDW Coeff of Naty 15.3 % (11.5-14.5) H 09/02/23 06:14 Plt Count 292 K/uL (130-400) 09/02/23 06:14 MPV 10.6 fL (9.4-12.4) 09/02/23 06:14 Immature Gran % (Auto) 0.4 % 08/29/23 04:45 Neut % (Auto) 62.7 % 08/29/23 04:45 Lymph % (Auto) 19.3 % 08/29/23 04:45 Owsley % (Auto) 12.7 % 08/29/23 04:45 Eos % (Auto) 4.3 % 08/29/23 04:45 Baso % (Auto) 0.6 % 08/29/23 04:45 Neut # (Auto) 6.85 K/uL (1.40-6.50) H 08/29/23 04:45 Lymph # (Auto) 2.11 K/uL (1.20-3.40) 08/29/23 04:45 Owsley # (Auto) 1.39 K/uL (0.11-0.59) H 08/29/23 04:45 Eos # (Auto) 0.47 K/uL (0.00-0.50) 08/29/23 04:45 Baso # (Auto) 0.07 K/uL (0.00-0.20) 08/29/23 04:45 Immature Gran # (Auto) 0.04 K/uL (0.01-0.20) 08/29/23 04:45 Sodium 138 mmol/L (136-145) 09/02/23 06:14 Potassium 4.2 mmol/L (3.5-5.1) 09/02/23 06:14 Chloride 107 mmol/L (98-107) 09/02/23 06:14 Carbon Dioxide 25 mmol/L (21-32) 09/02/23 06:14 Anion Gap 6 (3-11) 09/02/23 06:14 BUN 22 mg/dl (6-23) 09/02/23 06:14 Creatinine 1.08 mg/dl (0.6-1.4) 09/02/23 06:14 Est Cr Clr Drug Dosing 70.5 ml/min 09/02/23 06:14 Est GFR ( Amer) 76.3 ml/min 09/02/23 06:14 Est GFR (Non-Af Amer) 65.9 ml/min 09/02/23 06:14 BUN/Creatinine Ratio 20.4 (10-20) H 09/02/23 06:14 Glucose 89 mg/dl (70-99(Fasting)) 09/02/23 06:14 Lactate 1.2 mmol/L (0.4-2.0) 08/29/23 04:45 Calcium 9.2 mg/dl (8.6-10.3) 09/02/23 06:14 Magnesium 2.1 mg/dl (1.7-2.4) 08/31/23 07:16 Total Bilirubin 1.6 mg/dl (0.2-1.0) H 08/29/23 04:45 Direct Bilirubin 0.4 mg/dl (0-0.2) H 08/29/23 04:45 AST 25 U/L (13-39) 08/29/23 04:45 ALT 33 U/L (7-52) 08/29/23 04:45 Alkaline Phosphatase 137 U/L (34-104) H 08/29/23 04:45 Troponin I High Sens 9.0 pg/ml (0-20) 08/29/23 04:45 Total Protein 7.2 gm/dl (6.0-8.3) 08/29/23 04:45 Albumin 3.9 gm/dl (3.4-5.0) 08/29/23 04:45 Procalcitonin 0.04 ng/ml (0-0.5) 08/29/23 04:45 Impressions Chest X-Ray 08/29/23 04:40 XR chest 1V portable CLINICAL HISTORY: Sepsis COMPARISON STUDY: Chest radiograph May 17, 2023. FINDINGS: Lung volumes are normal. Lungs are clear. There is no pneumothorax or pleural effusion. Cardiomegaly is unchanged. Mediastinal contours are normal. There is no evidence for pulmonary edema. IMPRESSION: No acute cardiopulmonary findings. Stable cardiomegaly. ACT 112: Negative or not required by law. Electronically signed by: Neville Maza M.D. 08/29/2023 6:37 AM Hospital Course (1) Cellulitis: Chest Wall Cellulitis/Bullous Pemphigoid --CXR:No acute cardiopulmonary findings. Stable cardiomegaly. --Blood culture negative to date -- Continue Rocephin, doxycycline --Continue prednisone 40 mg daily --Discussed with dermatology Dr. Romero: Recommends skin biopsy as able, follow- up outpatient Received IV fluids Needs follow-up with dermatology on discharge Benadryl as needed Increased leukocytosis likely due to steroids Discussed with Dr. Boyle on 09/02/2023: Advised to increase prednisone to 60 mg daily Outpatient follow-up with Dr. 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) Hypertension Hyperlipidemia Past tobacco abuse Continue home medications Monitor BP DVT Px: Eliquis Code Status Full code Total Time Total Time Spent Total Time Spent (In Minutes): 53 minutes Discharge Plan Discharge Items Patient Disposition: Home - Self-Care Reason For Visit: CELLULITIS Discharge Diagnosis: Chest Wall Cellulitis/Bullous Pemphigoid Activity: Per Instructions section Exercise/Sports: Gradually increase as tolerated Non-emergency contact: Primary Care Provider and Specialist Call non-emergency contact if: you have any medication questions, your symptoms worsen, your pain is concerning for you and you have a fever Follow-up/Referrals: Maggi Vora DO [Primary Care Provider] - (Date & Time 09/09/2023 9:00 AM Provider Alli Mack MD Department [facility] ) Noel Romero MD [Physician] - 09/04/23 3:00 pm Diet: Heart Healthy Addtl Attending Provider Instructions: Follow-up with your primary care physician Dr. Maggi Vora on 09/09/2023 9:00 AM Follow-up with your operations administrative assistant Dr. Romero on 09/04/2023 at 3 PM as scheduled -- Complete the antibiotic course cefdinir, doxycycline as prescribed -- Continue prednisone 60 mg daily. Further recommendations as per your operations administrative assistant. Please discuss with him for further instructions as advised. Seek immediate medical attention if your symptoms reoccur or worsen Please take all medications as instructed on discharge list below. Please call if you have any questions or problems. You can reach a [facility] hospitalist on duty at [facility] 24 hours a day by calling [phone] Pending Studies at Discharge: No Stand-Alone Forms: My [facility], Smoking Cessation Medications and DC Order Prescriptions: New loratadine [Wal-itin] 10 mg Tablet 10 mg PO QAM Qty: 10 0RF doxycycline hyclate 100 mg Capsule 100 mg PO BID Qty: 10 0RF prednisone 20 mg Tablet 60 mg PO DAILY 2 Days Qty: 6 0RF cefdinir 300 mg capsule 300 mg PO BID 5 Days Qty: 10 0RF Advanced Probiotic 625 mg (10 billion cell) Capsule 1 cap PO DAILY Qty: 10 0RF Continued pantoprazole 40 mg Tablet,Delayed Release (Dr/Ec) 40 mg PO QAM atorvastatin 20 mg Tablet 10 mg PO QPM apixaban 5 mg Tablet 5 mg PO BID montelukast 10 mg Tablet 10 mg PO PM metoprolol succinate 50 mg Tablet Extended Release 24 Hr 50 mg PO DAILY acetaminophen [Tylenol Extra Strength] 500 mg tablet 1,000 mg PO DIRECTED PRN (Reason: Pain) carboxymethylcellulose sodium [Refresh Tears] 0.5 % Drops 1 drp OPHTHALMIC (EYE) DIRECTED PRN (Reason: Dry Eyes) furosemide [Lasix] 20 mg Tablet 20 mg PO DAILY potassium chloride 20 mEq Tablet Extended Release 10 meq PO DAILY diclofenac sodium 1 % gel TOPICAL Discharge Orders: Discharge Order (Routine); Ordered 09/03/23 Ordered By: Torres Tineo Admission Data Admit Date/Time: 08/30/23 08:01 Attending Provider: Torres Tineo Admit Provider: Torres Tineo Primary Care Provider: Maggi Vora Other Providers: Gordo Marcus
[2023-09-03] MEDS: ADVANCED PROBIOTIC 625 MG CAPSULE PO SCH (12:26)
== END 2023-09-03 13:02 | disposition home or self-care (01) | DRG 596 ==
LOC: EDINP 04:25 → ED 04:25 → SUATTDRO 06:14 → 3W 09:24